=== PATIENT | female | born 1935 | race Caucasian/White ===

== ENCOUNTER 2018-12-18 15:48 | Outpatient (REF) | payer MEDICARE, SELFPAY ==
[2018-12-18 19:59] LABS: ALT 20 U/L (12-78); AST 16 U/L (15-37); Albumin 3.4 g/dL (3.4-5.0); Alkaline Phosphatase 118 U/L (46-116); BUN 18 mg/dL (7-18); Bilirubin, Total 0.3 mg/dL (0.2-1.0); CREATININE 0.72 mg/dL (0.55-1.02); Calculated LDL 169; Chloride 107 mmol/L (98-107); Cholesterol 245 mg/dL (50-200); Glucose 124 mg/dL (70-100); HDL Cholesterol 49 mg/dL (40-60); Potassium 4.5 mmol/L (3.5-5.1); Sodium 145 mmol/L (136-145); Total Protein 6.9 g/dL (6.4-8.2); Triglyceride 136 mg/dL (30-150)
== END 2018-12-18 16:08 ==
LOC: NCHCN 15:48
PROVIDERS: PCP Family Medicine; Visit Provider Nurse Practitioner
DX: E78.5 Hyperlipidemia, unspecified (principal); Z86.73 Personal history of transient ischemic attack (TIA), and cerebral infarction without residual deficits
CPT/HCPCS: 80053; 80061; 83721

== ENCOUNTER 2019-01-17 12:32 | Emergency (ER) | payer MEDICARE, SELFPAY ==
[2019-01-17 12:36] VITALS: BP 145/65; PULSE 102; RESP 16; TEMP 37; O2SAT 97
--- NOTE | 2019-01-17 12:44 | W.ED.GENAD ---
Discharge Plan Disposition Patient Disposition: HOME Condition: Improving Discharge Details Chief Complaint: DentalOral Clinical Impression: Odontalgia Primary Care Provider: Joy Law ED Provider: Jonel London Home Meds and New Rx's Prescriptions: New penicillin V potassium 500 mg tablet 500 mg PO TID 10 Days Qty: 30 RF: 0 Continued aspirin 81 MG tablet,chewable 81 mg PO BID RF: 0 epinephrine 0.3 MG/SYR auto-injector 0.3 mg IJ PRN PRN (Reason: Anaphylaxis) Qty: 1 RF: 0 Discharge Instructions Instructions: Toothache (ED) Additional Instructions: Please follow-up with dentistry for recheck. Take penicillin as prescribed. May use Tylenol if needed for aches or pains Medical Decision Making 83-year-old female presents with odontalgia intermittently over weeks time, worse with hard crusty foods. She is afebrile and her examination reveals numerous dental caries and tenderness to percussion of the left maxillary premolars. Consistent with early apical infection. She has voiced a fear regarding dentistry due to coronary disease. She has not had any chest pains or other discomfort. I reassured her that she and her best interest to follow-up with dentistry. I will place her on a course of penicillin for developing infection. She is stable for discharge HPI General Mode of arrival: ambulatory. Date/Time Provider Initiated Documentation: 01/17/19 12:32. Limitations to Documentation: no limitations. Information obtained by: patient and family. History of Present Illness 83 year old F presents to the emergency department with the chief complaint of Left upper dental pain, described as moderate, Quality is described as dull, and is localized to the mouth and left. Patient reports no radiation. Patient started experiencing this day(s) and it has been intermittent. No relieving factors improve symptom(s), No exacerbating factors reported . Patient notes no other symptoms.; denies fever/chills. Patient did receive the following treatments prior to arrival, none Related Data Home Medications Medication Instructions Recorded Confirmed aspirin 81 mg PO BID tab.chew 06/09/17 01/17/19 epinephrine 0.3 mg IJ PRN PRN #1 kit 01/21/18 penicillin V potassium 500 mg PO TID 10 Days #30 tab 01/17/19 Previous Rx's Medication Instructions Recorded epinephrine 0.3 mg IJ PRN PRN #1 kit 01/21/18 penicillin V potassium 500 mg PO TID 10 Days #30 tab 01/17/19 Allergies Allergy/AdvReac Type Severity Reaction Status Date / Time ticagrelor [From Brilinta] Allergy Mild Skin Rash Unverified 01/17/19 12:40 General Stated Complaint: DentalOral KELVIN: 4 Review of Systems Review of Systems 6 systems reviewed and otherwise negative [facility] Medical History Acute ST elevation myocardial infarction (STEMI) CAD (coronary artery disease) HTN (hypertension) PVD (peripheral vascular disease) with claudication TIA (transient ischemic attack) Surgical History Appendectomy Cholecystectomy Social History Smoking/Tobacco Use Status: Former Tobacco Use Drug use: Never Do you feel safe at home: Yes Do you feel safe in your relationship?: Yes Exam Narrative Exam Narrative: GEN: awake, alert, oriented 3. Pleasant, well groomed, interactive. HEAD: Normocephalic, atraumatic ENT: Mucous membranes moist, oropharynx with tender teeth left maxillary premolar, numerous dental caries. External ear exam unremarkable EYES: PERRL, EOMI NECK: Full ROM, no SERGE, no menigismus CHEST/RESP: Nontender, clear to auscultation bilateral, no wheeze/rhonchi/rales CARDIOVASCULAR: RRR, no murmur, rub dwaine. 2+ Rad pulse bilateral EXT: Full ROM, no edema, no rash Neuro: Grossly normal neurologic exam, conversant, interactive. Psych: Speech fluent, thoughts congruent, affect normal Course Vital Signs Temperature 37.0 C 01/17/19 12:36 Pulse 102 H 01/17/19 12:36 Respiratory Rate 16 01/17/19 12:36 Blood Pressure 145/65 H 01/17/19 12:36 Pulse Oximetry 97 01/17/19 12:36 Temperature 37.0 C 01/17/19 12:36 Temperature Source Temporal Artery Scan 01/17/19 12:36 Pulse 102 H 01/17/19 12:36 Respiratory Rate 16 01/17/19 12:36 Respiratory Effort Non-Labored 01/17/19 12:38 Blood Pressure 145/65 H 01/17/19 12:36 Blood Pressure Position Sitting 01/17/19 12:36 Pulse Oximetry 97 01/17/19 12:36 Oxygen Delivery Method Room Air 01/17/19 12:36 Oxygen Flow Rate 0 01/17/19 12:36 Pain Level 6 01/17/19 12:39
--- NOTE | 2019-01-17 12:47 | ED.GENADUL_ITS ---
Discharge Plan Disposition Patient Disposition: HOME Condition: Improving Discharge Details Chief Complaint: DentalOral Clinical Impression: Odontalgia Primary Care Provider: Joy Law ED Provider: Jonel London Home Meds and New Rx's Prescriptions: New penicillin V potassium 500 mg tablet 500 mg PO TID 10 Days Qty: 30 RF: 0 Continued aspirin 81 MG tablet,chewable 81 mg PO BID RF: 0 epinephrine 0.3 MG/SYR auto-injector 0.3 mg IJ PRN PRN (Reason: Anaphylaxis) Qty: 1 RF: 0 Discharge Instructions Instructions: Toothache (ED) Additional Instructions: Please follow-up with dentistry for recheck. Take penicillin as prescribed. May use Tylenol if needed for aches or pains Medical Decision Making 83-year-old female presents with odontalgia intermittently over weeks time, worse with hard crusty foods. She is afebrile and her examination reveals numerous dental caries and tenderness to percussion of the left maxillary premolars. Consistent with early apical infection. She has voiced a fear regarding dentistry due to coronary disease. She has not had any chest pains or other discomfort. I reassured her that she and her best interest to follow-up with dentistry. I will place her on a course of penicillin for developing infection. She is stable for discharge HPI General Mode of arrival: ambulatory . Date/Time Provider Initiated Documentation: 01/17/19 12:32 . Limitations to Documentation: no limitations . Information obtained by: patient and family . History of Present Illness 83 year old F presents to the emergency department with the chief complaint of Left upper dental pain, described as moderate, Quality is described as dull, and is localized to the mouth and left. Patient reports no radiation. Patient started experiencing this day(s) and it has been intermittent. No relieving factors improve symptom(s), No exacerbating factors reported . Patient notes no other symptoms.; denies fever/chills. Patient did receive the following treatments prior to arrival, none Related Data Home Medications Medication Instructions Recorded Confirmed aspirin 81 mg PO BID tab.chew 06/09/17 01/17/19 epinephrine 0.3 mg IJ PRN PRN #1 kit 01/21/18 penicillin V potassium 500 mg PO TID 10 Days #30 tab 01/17/19 Previous Rx's Medication Instructions Recorded epinephrine 0.3 mg IJ PRN PRN #1 kit 01/21/18 penicillin V potassium 500 mg PO TID 10 Days #30 tab 01/17/19 Allergies Allergy/AdvReac Type Severity Reaction Status Date / Time ticagrelor [From Brilinta] Allergy Mild Skin Rash Unverified 01/17/19 12:40 General Stated Complaint: DentalOral KELVIN: 4 Review of Systems Review of Systems 6 systems reviewed and otherwise negative [facility] Medical History Acute ST elevation myocardial infarction (STEMI) CAD (coronary artery disease) HTN (hypertension) PVD (peripheral vascular disease) with claudication TIA (transient ischemic attack) Surgical History Appendectomy Cholecystectomy Social History Smoking/Tobacco Use Status: Former Tobacco Use Drug use: Never Do you feel safe at home: Yes Do you feel safe in your relationship?: Yes Exam Narrative Exam Narrative: GEN: awake, alert, oriented 3. Pleasant, well groomed, interactive. HEAD: Normocephalic, atraumatic ENT: Mucous membranes moist, oropharynx with tender teeth left maxillary premolar, numerous dental caries. External ear exam unremarkable EYES: PERRL, EOMI NECK: Full ROM, no SERGE, no menigismus CHEST/RESP: Nontender, clear to auscultation bilateral, no wheeze/rhonchi/rales CARDIOVASCULAR: RRR, no murmur, rub dwaine. 2+ Rad pulse bilateral EXT: Full ROM, no edema, no rash Neuro: Grossly normal neurologic exam, conversant, interactive. Psych: Speech fluent, thoughts congruent, affect normal Course Vital Signs Temperature 37.0 C 01/17/19 12:36 Pulse 102 H 01/17/19 12:36 Respiratory Rate 16 01/17/19 12:36 Blood Pressure 145/65 H 01/17/19 12:36 Pulse Oximetry 97 01/17/19 12:36 Temperature 37.0 C 01/17/19 12:36 Temperature Source Temporal Artery Scan 01/17/19 12:36 Pulse 102 H 01/17/19 12:36 Respiratory Rate 16 01/17/19 12:36 Respiratory Effort Non-Labored 01/17/19 12:38 Blood Pressure 145/65 H 01/17/19 12:36 Blood Pressure Position Sitting 01/17/19 12:36 Pulse Oximetry 97 01/17/19 12:36 Oxygen Delivery Method Room Air 01/17/19 12:36 Oxygen Flow Rate 0 01/17/19 12:36 Pain Level 6 01/17/19 12:39
[2019-01-17 15:30] VITALS: BP 145/65; PULSE 102; RESP 16; TEMP 37; O2SAT 97
== END 2019-01-17 12:53 | disposition home or self-care (01) ==
LOC: ER 12:56
PROVIDERS: Emergency Provider Emergency Medicine; PCP Nurse Practitioner
DX: K04.7 Periapical abscess without sinus (principal)
CPT/HCPCS: 99283

== ENCOUNTER 2022-02-13 16:47 | Emergency (ER) | payer MEDICARE, MEDICAID, SELFPAY ==
[2022-02-13] VITALS (14 sets, daily range): BP systolic 107–198; BP diastolic 63–126; PULSE 62–76; RESP 9–21; TEMP 36–36.6; O2SAT 95–99
--- NOTE | 2022-02-13 17:15 | DI.CT_ITS ---
Exam(s) CT BRAIN NECK CTA EXAM: CT BRAIN NECK CTA CLINICAL HISTORY: dizziness. TECHNIQUE: Imaging Protocol: Axial CT angiography was performed with multi-slice acquisition and mu lti-planar and 3D reconstructions. CONTRAST MATERIAL: Intravenous: Omnipaque 350 Contrast volume:structured data in ml COMPARISON: CT CH/UPPER ABD WITH CONTRAST from 06/14/2017 FINDINGS: CT Head W/O and W contrast: Ventricles and Extra axial spaces: Normal in size and morphology for the patient's age. Hemorrhage: None. Cerebral parenchyma: Mild atrophy consistent with the patient's age. 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 No it infarct or mass. Midline shift: None. Brainstem/Cerebellum: Normal. Calvarium: Normal. Visualized Paranasal sinuses/Mastoids: Clear. Soft Tissues: Unremarkable. Enhancement: Normal. CTA Brain W: Internal Carotid Arteries: Petrous: Normal. Cavernous: Normal. Cerebral: Normal. Middle Cerebral Arteries: Right: No aneurysm, occlusion or significant stenosis. Left: No aneurysm, occlusion or significant stenosis. Anterior Cerebral Arteries: Right: No aneurysm, occlusion or significant stenosis. Left: No aneurysm, occlusion or significant stenosis. Posterior cerebral Arteries: Right: No aneurysm, occlusion or significant stenosis. Left: No aneurysm, occlusion or significant stenosis. Vertebral Arteries: Right: No aneurysm, occlusion or significant stenosis. Left: No aneurysm, occlusion or significant stenosis. Basilar Artery: No aneurysm, occlusion or significant stenosis. CTA Neck W: Common Carotid: Right: No aneurysm, occlusion or significant stenosis. Left: No aneurysm, occlusion or significant stenosis. External Carotid: Right: No aneurysm, occlusion or significant stenosis. Left: No aneurysm, occlusion or significant stenosis. Internal Carotid: Right: Mild plaque proximally no aneurysm,. Minimal stenosis. Left: Moderate plaque proximally. No aneurysm,. Mild stenosis. Vertebral Artery: Right: No aneurysm, occlusion or significant stenosis. No dissection Left: No aneurysm, occlusion or significant stenosis. No dissection Lung Apices: Normal. Bones: Degenerative changes. Soft Tissues: Normal. IMPRESSION: 1. Normal CTA examination of the [place]. 2. 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 3. Mild plaque in the proximal internal carotid arteriesleft greater than right. No significant sten osis of greater than 50 percent... RADIATION DOSE DELIVERED: 1,672.15mGy.cm Total DLP DATA REPOSITORY: All CT scans at this facility are submitted to the National Radiology Data Registry (NRDR) Dose Index Registry (DIR) with the [employer] ([employer]). RADIATION OPTIMIZATION: All CT scans at this facility use at least one of these dose optimization te chniques: automated exposure control; mA and/or kV adjustment per patient size (includes targeted exa ms where dose is matched to clinical indication); or iterative reconstruction.
--- NOTE | 2022-02-13 17:15 | RT.EKG_ITS ---
APPROVED REPORT Exam: Resting ECG Reason for Exam: dizzy Patient Location: E HR:58 bpm ECG Measurements Heart Rate 58 AXIS NE 189 P 24 QRSd 101 QRS 53 QT 432 T 30 QTc 426 Conclusion Sinus bradycardia...rate< 60
[2022-02-13 17:53] LABS: Abs Immature Grans 0.04 10^3/uL (0.0-0.06); Absolute Basophil Count 0.06 10^3/uL (0.0-0.2); Absolute Eosinophil Count 0.27 10^3/uL (0.0-0.7); Absolute Lymphocyte Count 2.66 10^3/uL (1.2-3.4); Absolute Monocyte Count 0.67 10^3/uL (0.1-0.8); Basophils % 0.7; Eosinophils % 3.3; HGB 14.2 g/dL (11.2-15.7); Immature Grans % 0.5; Lymphocytes % 32.8; MCH 29.5 pg (27.0-33.0); MCV 89 fL (80-95); MPV 10.4 fL (8.0-11.0); Monocytes % 8.3; Neutrophils % 54.4; Platelet Count 472 10^3/uL (130-400); RBC 4.81 10^6/uL (3.93-5.22); RDW 13.1 % (11.7-14.6); RDW-SD 42.6 fL
[2022-02-13] MEDS: diphenhydrAMINE 50 MG/ML VIAL 12.5 MG IVP (18:04)
[2022-02-13] MEDS: Lactated Ringers 1,000 ML 500 ML IV (18:04)
[2022-02-13] MEDS: methylPREDNISolone SUCC 125 MG VIAL IVP (18:05)
[2022-02-13 18:14] LABS: ALT 25 U/L (14-59); AST 20 U/L (15-37); Albumin 3.6 g/dL (3.4-5.0); Alkaline Phosphatase 101 U/L (46-116); Anion Gap 11.1 mmol/L (3-11); BUN 11 mg/dL (7-18); Bilirubin, Total 0.6 mg/dL (0.2-1.0); CO2 24.9 mmol/L (21.0-32.0); CREATININE 0.8 mg/dL (0.55-1.02); Chloride 107 mmol/L (98-107); Glucose 108 mg/dL (74-106); Potassium 3.5 mmol/L (3.5-5.1); Sodium 143 mmol/L (136-145); Total Protein 7.5 g/dL (6.4-8.2)
[2022-02-13 18:15] LABS: Troponin I < 50 ng/L (<or=60)
[2022-02-13] MEDS: Omnipaque 350 MG/ML 100 ML BTL 85 ML IJ (18:41)
[2022-02-13] MEDS: Normal Saline Flush 10 ML SYR IVP (18:41)
--- NOTE | 2022-02-13 19:24 | DI.VRAD_ITS ---
PROCEDURE INFORMATION: Exam: CTA Head With Contrast, Arteriography Exam date and time: 02/13/2022 6:34 PM Age: 86 years old Clinical indication: Dizziness and giddiness; Patient HX: HX of TIA TECHNIQUE: Imaging protocol: Computed tomographic angiography of the head with contrast. Exam focused on the arteries. 3D rendering (Not supervised by radiologist): MIP and/or 3D reconstructed images were created by the technologist. Contrast material: OMNIPAQUE 350; Contrast volume: 85 ml; Contrast route: INTRAVENOUS (IV); COMPARISON: CT HEAD WITHOUT STROKE PROTOCOL 11/03/2015 11:26 AM FINDINGS: ANTERIOR CIRCULATION: Right internal carotid artery: Unremarkable. Intracranial segment is patent with no significant stenosis. No aneurysm. Right middle cerebral artery: Unremarkable. No occlusion or significant stenosis. No aneurysm. Right anterior cerebral artery: Unremarkable. No occlusion or significant stenosis. No aneurysm. Left internal carotid artery: Unremarkable. Intracranial segment is patent with no significant stenosis. No aneurysm. Left middle cerebral artery: Unremarkable. No occlusion or significant stenosis. No aneurysm. Left anterior cerebral artery: Unremarkable. No occlusion or significant stenosis. No aneurysm. POSTERIOR CIRCULATION: Right vertebral artery: Unremarkable. No occlusion or significant stenosis. No aneurysm. Left vertebral artery: Unremarkable. No occlusion or significant stenosis. No aneurysm. Basilar artery: Unremarkable. No occlusion or significant stenosis. No aneurysm. Right posterior cerebral artery: Unremarkable. No occlusion or significant stenosis. No aneurysm. Left posterior cerebral artery: Unremarkable. No occlusion or significant stenosis. No aneurysm. Brain: Diffuse cerebral atrophy is evident with chronic superimposed encephalomalacic foci consistent with chronic ischemic insults also seen involving the left parietal and occipital lobes. No evidence of acute transcortical infarction or recent intracranial hemorrhage detected. Cerebral ventricles: Ventricular and cisternal spaces are normal in size and configuration and there is no midline shift or hydrocephalus. Bones/joints: Unremarkable. No acute fracture. Soft tissues: Unremarkable. IMPRESSION: No large vessel stenosis or occlusion detected involving the major branches of the anterior or posterior intracranial circulation. PROCEDURE INFORMATION: Exam: CTA Neck With Contrast Exam date and time: 02/13/2022 6:34 PM Age: 86 years old Clinical indication: Dizziness and giddiness; Patient HX: HX of TIA TECHNIQUE: Imaging protocol: Computed tomographic angiography of the neck with contrast. 3D rendering (Not supervised by radiologist): MIP and/or 3D reconstructed images were created by the technologist. Contrast material: OMNIPAQUE 350; Contrast volume: 85 ml; Contrast route: INTRAVENOUS (IV); COMPARISON: CT CH/UPPER ABD WITH CONTRAST 06/14/2017 9:24 AM FINDINGS: Right common carotid artery: No stenosis. No dissection or occlusion. Right internal carotid artery: No stenosis of the extracranial segment. No dissection or occlusion. Right external carotid artery: No occlusion or stenosis of the origin. Left common carotid artery: No stenosis. No dissection or occlusion. Left internal carotid artery: No stenosis of the extracranial segment. No dissection or occlusion. Left external carotid artery: No occlusion or stenosis of the origin. Right vertebral artery: No stenosis. No dissection or occlusion. Left vertebral artery: No stenosis. No dissection or occlusion. Soft tissues: Normal. No significant soft tissue swelling. Bones/joints: No acute fracture. IMPRESSION: No evidence of 50% or greater stenosis involving the cervical segments of the right or left internal carotid arteries by NASCET criteria. REFERENCES: NASCET CRITERIA. The degree of internal carotid artery stenosis is based on NASCET criteria. Normal is no stenosis. Mild is less than 50% stenosis. Moderate is 50-69% stenosis. Severe is 70% to 99% stenosis. Total occlusion is no detectable patent lumen. Dictated and Authenticated by: Chaparro Mirza MD. Ordering:JUSTYNA Shipman MD
[2022-02-13 19:39] LABS: Bilirubin Negative (Negative); Blood Negative (Negative); Clarity Clear (Clear); Glucose Negative (Negative); Ketones Negative (Negative); Leukocyte Esterase Negative (Negative); Nitrite Negative (Negative); Specific Gravity 1.015 (1.005-1.025); Urobilinogen 0.2 EU/dL (Up TO 0.2); pH 7.5 (5-8)
--- NOTE | 2022-02-13 19:41 | ED.GENADUL_ITS ---
Discharge Plan Disposition Patient Disposition: HOME Condition: Stable Discharge Details Clinical Impression: Rash, Dizziness Primary Care Provider: Joy Law ED Provider: Ramonita Lynn Home Meds and New Rx's Prescriptions: New prednisone 20 mg tablet 40 mg PO DAILY 3 Days Qty: 6 0RF Continued aspirin 81 MG tablet,chewable 81 mg PO BID epinephrine 0.3 MG/SYR auto-injector 0.3 mg IJ PRN PRN (Reason: Anaphylaxis) Qty: 1 0RF Discharge Instructions Instructions: Acute Rash (ED), Dizziness (ED) Additional Instructions: Take prednisone as prescribed Take Benadryl, 25 mg every 6 hours as needed for rash and itching Stay hydrated, drink regular fluids, at least eight 8 ounce glasses of water daily Referrals: Joy Law [Primary Care Provider] - Discharge Data Discharge Date/Time-TO BE ENTERED AT DEPARTURE: 02/13/22 20:08 Medical Decision Making CTA head and neck did not show evidence of acute abnormality, labs baseline for patient Mildly hypertensive, marked improvement in symptoms after Benadryl and fluids, ambulatory with steady gait Placed on prednisone for home Will take Benadryl as needed No evidence of anaphylaxis 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 Lab Data Lab results reviewed: Yes I reviewed the patient's lab results. ECG Data Prior ECG tracings: available for review HPI General Date/Time Provider Initiated Documentation: 02/13/22 17:14 . HPI Narrative: This 86-year-old female presents for report of dizziness that started around 3 AM. Patient states she was bitten by a bug last night when she was walking on her left cheek and neck. She has had swelling. She denies any difficulty swallowing, chest pain, shortness of breath. She denies any weakness or dizziness. She denies any vision change or strength or sensation change. She denies any difficulty with walking or speech. She is not taken any nyvm-wwx-latrous medications to help with itching and swelling per patient. Related Data Home Medications Medication Instructions Recorded Confirmed aspirin 81 mg chewable tablet 81 mg PO BID 06/09/17 02/13/22 epinephrine 0.3 mg/0.3 mL 0.3 mg (0.3 mL) IJ PRN PRN 01/21/18 injection, auto-injector Anaphylaxis ##1 prednisone 20 mg tablet 40 mg PO DAILY 3 days #6 tabs 02/13/22 Previous Rx's Medication Instructions Recorded epinephrine 0.3 mg/0.3 mL 0.3 mg (0.3 mL) IJ PRN PRN 01/21/18 injection, auto-injector Anaphylaxis ##1 prednisone 20 mg tablet 40 mg PO DAILY 3 days #6 tabs 02/13/22 Allergies Allergy/AdvReac Type Severity Reaction Status Date / Time ticagrelor [From Brilinta] Allergy Mild Skin Rash Unverified 02/13/22 17:08 General Stated Complaint: Allergic KELVIN: 3 Review of Systems All systems reviewed & are unremarkable except as noted in HPI and below PFSH All Active Problems (Updated 02/13/22 @ 19:44 by CATALINA Aviles) Rash (Acute) Dizziness (Acute) Medical History (Updated 02/13/22 @ 19:44 by CATALINA Aviles) Acute ST elevation myocardial infarction (STEMI) CAD (coronary artery disease) HTN (hypertension) PVD (peripheral vascular disease) with claudication TIA (transient ischemic attack) Surgical History Appendectomy Cholecystectomy Social History Smoking/Tobacco Use Status: Former Tobacco Use Smoking risk assessment performed?: Yes Alcohol Intake: never Drug use: Never Substance use type: does not use Do you feel safe at home: Yes Do you feel safe in your relationship?: Yes Exam Const General: cooperative, comfortable and no acute distress Orientation: alert and oriented x3 [facility] Head images: 1. swelling and redness Face images: 1. Throat: uvula midline Other: No edema noted Eyes Pupils: PERRL EOM: EOM intact bilaterally Resp Effort & Inspection: normal respiratory effort Auscultation: clear to auscultation bilaterally Cardio Rate: regular rate Rhythm: regular rhythm Skin General skin exam: no rashes or lesions noted Neuro General: patient alert and patient oriented x3 Cognition: normal cognition Speech: speech normal Gait: normal gait Motor: strength 5/5 throughout Other: Sensation intact distally, negative [id number]-wwpgug, negative heel mansfield, negative pronator drift Extrem Other: neurovascularly intact Course Vital Signs Vital signs: Vital Signs Temperature 36 C L 02/13/22 17:02 Pulse 72 02/13/22 17:02 Respiratory Rate 18 02/13/22 17:02 Blood Pressure 171/98 H 02/13/22 17:02 Pulse Oximetry 99 02/13/22 17:02 Temperature 36 C L 02/13/22 17:02 Temperature Source Temporal Artery Scan 02/13/22 17:02 Pulse 70 02/13/22 18:16 Pulse 70 02/13/22 18:48 Respiratory Rate 9 L 02/13/22 18:48 Respiratory Effort 02/13/22 18:44 Respiratory Pattern Normal 02/13/22 18:44 Blood Pressure 198/88 H 02/13/22 18:16 Blood Pressure Mean 113 02/13/22 18:16 Blood Pressure Position Sitting 02/13/22 17:02 Pulse Oximetry 98 02/13/22 18:48 Oxygen Delivery Method Room Air 02/13/22 17:02 Oxygen Flow Rate 0 02/13/22 17:02 Pain Level 0 02/13/22 17:02 Lab/Test Results Lab/Test Results: Laboratory Tests Range/Units 02/13/22 02/13/22 02/13/22 17:40 17:40 17:40 WBC (4.4-10.8) 10^3/uL 8.10 RBC (3.93-5.22) 10^6/uL 4.81 Hgb (11.2-15.7) g/dL 14.2 Hct (36.0-46.0) % 43.0 MCV (80-95) fL 89 MCH (27.0-33.0) pg 29.5 MCHC (32.0-36.0) % 33.0 RDW (11.7-14.6) % 13.1 Plt Count (130-400) 10^3/uL 472 H MPV (8.0-11.0) fL 10.4 Immature Gran % 0.5 Neutrophils % 54.4 Lymphocytes % 32.8 Monocytes % 8.3 Eosinophils % 3.3 Basophils % 0.7 Nucleated RBC % (0.0-0.3) % 0.0 Absolute Neutrophils (1.2-6.7) 10^3/uL 4.40 Absolute Lymphocytes (1.2-3.4) 10^3/uL 2.66 Absolute Monocytes (0.1-0.8) 10^3/uL 0.67 Absolute Eosinophils (0.0-0.7) 10^3/uL 0.27 Absolute Basophils (0.0-0.2) 10^3/uL 0.06 Sodium (136-145) mmol/L 143 Potassium (3.5-5.1) mmol/L 3.5 Chloride (98-107) mmol/L 107 Carbon Dioxide (21.0-32.0) mmol/L 24.9 Anion Gap (3-11) mmol/L 11.1 H BUN (7-18) mg/dL 11 Creatinine (0.55-1.02) mg/dL 0.8 Estimated GFR/1.73 m2 (mL/min/1.73m2) >= 60.00 Glucose (74-106) mg/dL 108 H Calcium (8.5-10.1) mg/dL 10.0 Magnesium (1.8-2.4) mg/dL 2.0 Total Bilirubin (0.2-1.0) mg/dL 0.6 AST (15-37) U/L 20 ALT (14-59) U/L 25 Alkaline Phosphatase (46-116) U/L 101 Troponin I (<or=60) ng/L < 50 Total Protein (6.4-8.2) g/dL 7.5 Albumin (3.4-5.0) g/dL 3.6 Urine Color (Yellow) Urine Clarity (Clear) Urine pH (5-8) Ur Specific [place] (1.005-1.025) Urine Protein (Negative) mg/dL Urine Ketones (Negative) mg/dL Urine Blood (Negative) Urine Nitrite (Negative) Urine Bilirubin (Negative) Urine Urobilinogen (Up TO 0.2) EU/dL Ur Leukocyte Esterase (Negative) Urine Glucose (Negative) mg/dL Range/Units 02/13/22 19:35 WBC (4.4-10.8) 10^3/uL RBC (3.93-5.22) 10^6/uL Hgb (11.2-15.7) g/dL Hct (36.0-46.0) % MCV (80-95) fL MCH (27.0-33.0) pg MCHC (32.0-36.0) % RDW (11.7-14.6) % Plt Count (130-400) 10^3/uL MPV (8.0-11.0) fL Immature Gran % Neutrophils % Lymphocytes % Monocytes % Eosinophils % Basophils % Nucleated RBC % (0.0-0.3) % Absolute Neutrophils (1.2-6.7) 10^3/uL Absolute Lymphocytes (1.2-3.4) 10^3/uL Absolute Monocytes (0.1-0.8) 10^3/uL Absolute Eosinophils (0.0-0.7) 10^3/uL Absolute Basophils (0.0-0.2) 10^3/uL Sodium (136-145) mmol/L Potassium (3.5-5.1) mmol/L Chloride (98-107) mmol/L Carbon Dioxide (21.0-32.0) mmol/L Anion Gap (3-11) mmol/L BUN (7-18) mg/dL Creatinine (0.55-1.02) mg/dL Estimated GFR/1.73 m2 (mL/min/1.73m2) Glucose (74-106) mg/dL Calcium (8.5-10.1) mg/dL Magnesium (1.8-2.4) mg/dL Total Bilirubin (0.2-1.0) mg/dL AST (15-37) U/L ALT (14-59) U/L Alkaline Phosphatase (46-116) U/L Troponin I (<or=60) ng/L Total Protein (6.4-8.2) g/dL Albumin (3.4-5.0) g/dL Urine Color (Yellow) Yellow Urine Clarity (Clear) Clear Urine pH (5-8) 7.5 Ur Specific [place] (1.005-1.025) 1.015 Urine Protein (Negative) mg/dL Negative Urine Ketones (Negative) mg/dL Negative Urine Blood (Negative) Negative Urine Nitrite (Negative) Negative Urine Bilirubin (Negative) Negative Urine Urobilinogen (Up TO 0.2) EU/dL 0.2 Ur Leukocyte Esterase (Negative) Negative Urine Glucose (Negative) mg/dL Negative
== END 2022-02-13 20:08 | disposition home or self-care (01) ==
PROVIDERS: Emergency Provider Physician Assistant; PCP Nurse Practitioner
DX: R42 Dizziness and giddiness (principal); R21 Rash and other nonspecific skin eruption; I10 Essential (primary) hypertension; Z87.891 Personal history of nicotine dependence
CPT/HCPCS: 36415; 70496; 70498; 80053; 93005; 96361; 96374; 96375; 99285; 81003; 83735; 84484; 85025; 93010; 99284; J1200; J2930; J3490

== ENCOUNTER 2022-11-19 08:30 | Emergency (ER) | payer MEDICARE, MEDICAID, SELFPAY ==
[2022-11-19 08:35] VITALS: BP 110/70; PULSE 80; RESP 18; TEMP 36.8; O2SAT 99
--- NOTE | 2022-11-19 08:54 | ED.GENADUL_ITS ---
Discharge Plan Disposition Patient Disposition: Home Discharge Details Clinical Impression: Acute cervical myofascial strain Primary Care Provider: RIK AUGUSTE ED Provider: Ceasar Gavin Home Meds and New Rx's Prescriptions: Continued aspirin 81 MG tablet,chewable 81 mg PO BID epinephrine 0.3 MG/SYR auto-injector 0.3 mg IJ PRN PRN (Reason: Anaphylaxis) Qty: 1 0RF Discharge Instructions Instructions: Cervical Strain (ED) Additional Instructions: Please continue to use the provided gel 4 times daily as needed for pain. Please rub appropriate amount on area of discomfort. You may also use [id number] acetaminophen as needed for further discomfort. Please follow- up with physical therapy and call number on paperwork for arrangement of physical therapy evaluation to improve your discomfort and range of motion of your neck. Also follow-up with your primary care provider for reassessment and to ensure you are improving. Stand Alone Forms: Physical Therapy Referral Referrals: RIK AUGUSTE, BUSINESS STRATEGY MANAGER [Primary Care Provider] - 1 week Medical Decision Making Patient presenting to the emergency department via EMS for chief complaint of neck pain. Patient states that 2 weeks ago she was gardening and afterwards she started having significant neck pain. Since then she has had continuing neck pain that has not improved in spite of time. Patient states significant reactions to even zkek-xsv-joxouzh medications and has only been taking her 81 mg aspirin which is not providing her any relief. Patient denies any injury or trauma, radiating pain, numbness tingling, headaches, or neurological symptoms. Physical exam shows slight and subtle midline tenderness to approximately C3-4 and muscular tenderness to the right side that is diffuse. Patient does have difficulty with range of motion that I feel is more secondary to pain than limitation. Patient very hesitant to taking any oral pain medication so we will give patient Voltaren gel and given duration of symptoms along with patient's age we will perform radiological imaging. Reviewed radiologist interpretation that shows mild degeneration C6-C7 but no acute abnormality noted. We will plan on sending patient home with Voltaren gel to use 4 times daily as needed for pain and recommended use of acetaminophen at night. Patient otherwise referred to primary care provider and physical therapy for reassessment and further interventions. After discussion of diagnosis and plan of care patient has no further needs, questions, or concerns and states clear understanding to return to the emergency department for any worsening symptoms. This documentation was generated using [employer] system, please disregard any oddities of phrase or misspellings. Imaging Data Radiologic Study: Imaging: CT Scan Radiologist's impression: Exam(s) CT CERVICAL SPINE WO EXAM: CT CERVICAL SPINE WO CLINICAL HISTORY: neck pain (c4?). TECHNIQUE: Imaging Protocol: Axial computed tomography images with coronal and sagittal reformatted images were created and reviewed CONTRAST MATERIAL: Noncontrast COMPARISON: 13 February 2022 FINDINGS: Bones: No fracture or dislocations are seen. The alignment of the cervical spine is normal including the cervicovertebral junction and cervicothoracic junction. Soft Tissues: The soft tissues of the neck are unremarkable. No large disk herniations are identified. Mild degenerative disc changes at C6-7. No significant neural foraminal narrowing or central canal stenosis. The visualized portions of the lung apices shows stable areas of scarring. No pneumothorax is seen. IMPRESSION: Mild degenerative changes at C6-7. Acute abnormality identified. HPI General Mode of arrival: EMS . Date/Time Provider Initiated Documentation: 11/19/22 08:34 . Limitations to Documentation: no limitations . Information obtained by: patient and RN notes reviewed . History of Present Illness 86 year old F presents to the emergency department with the chief complaint of neck pain , described as moderate, with intensity rated at 8. Quality is described as aching and sharp, and is localized to the neck. Patient reports no radiation. Patient started experiencing this week(s) (2) and it has been constant. No relieving factors improve symptom(s), Movement worsens symptoms . Patient notes no other symptoms.. Patient did receive the following treatments prior to arrival, Aspirin Related Data Home Medications Medication Instructions Recorded Confirmed aspirin 81 mg chewable tablet 81 mg PO BID 06/09/17 11/19/22 epinephrine 0.3 mg/0.3 mL 0.3 mg (0.3 mL) IJ PRN PRN 01/21/18 11/19/22 injection, auto-injector Anaphylaxis ##1 Previous Rx's Medication Instructions Recorded epinephrine 0.3 mg/0.3 mL 0.3 mg (0.3 mL) IJ PRN PRN 01/21/18 injection, auto-injector Anaphylaxis ##1 Allergies Allergy/AdvReac Type Severity Reaction Status Date / Time ticagrelor [From Brilinta] Allergy Mild Skin Rash Unverified 02/13/22 17:08 General Stated Complaint: Nk/Back Pain KELVIN: 4 Review of Systems Constitutional Constitutional: Denies chills, Denies fever(s) and Denies headache(s) Eyes Eyes: Denies change in vision ENT Ears, Nose, Mouth, and Throat: Denies headache(s) and Reports neck pain Cardiovascular Cardiovascular: Denies chest pain and Denies dyspnea Respiratory Respiratory: Denies dyspnea Musculoskeletal Musculoskeletal: Denies muscle weakness, Reports neck pain, Denies numbness, Reports stiffness and Denies tingling Integumentary/Breasts Skin/Breast: Denies rash Neurologic Neurologic: Denies headache(s), Denies numbness and Denies tingling PFSH All Active Problems (Updated 11/19/22 @ 10:08 by Ceasar Gavin NP) Acute cervical myofascial strain (Acute) Medical History Acute ill-defined cerebrovascular disease Acute ST elevation myocardial infarction (STEMI) CAD (coronary artery disease) Cataract HTN (hypertension) Hyperlipidemia PVD (peripheral vascular disease) with claudication TIA (transient ischemic attack) Surgical History Appendectomy Cholecystectomy Social History Smoking/Tobacco Use Status: Former Tobacco Use Smoking risk assessment performed?: Yes Alcohol Intake: never Drug use: Never Substance use type: does not use Do you feel safe at home: Yes Do you feel safe in your relationship?: Yes Exam Const General: cooperative, no acute distress and not ill appearing Orientation: alert, awake and oriented x3 HENMT Mouth: moist mucous membranes Resp Effort & Inspection: normal respiratory effort, able to speak in complete sentences and no respiratory distress Cardio Rate: regular rate Rhythm: regular rhythm Heart Sounds: S1 normal and S2 normal Back/Spine/Pelvis Cervical Spine: normal cervical lordosis, No loss of normal cervical lordosis, cervical muscular tenderness, pain with cervical ROM, cervical spasm, cervical spinal tenderness and No step off deformity Thoracic/Lumbar Spine: thoracic and lumbar spine normal to inspection Skin General skin exam: no rashes or lesions noted Neuro General: patient alert, patient awake, patient oriented x3, moves all extremities and no focal motor deficits Sensory Exam: no sensory deficits noted Course Vital Signs Vital signs: Vital Signs Temperature 36.8 C 11/19/22 08:35 Pulse 80 11/19/22 08:35 Respiratory Rate 18 11/19/22 08:35 Blood Pressure 110/70 11/19/22 08:35 Pulse Oximetry 99 11/19/22 08:35 Temperature 36.8 C 11/19/22 08:35 Temperature Source Temporal Artery Scan 11/19/22 08:35 Pulse 80 11/19/22 08:35 Respiratory Rate 18 11/19/22 08:35 Respiratory Effort Normal, Non-Labored 11/19/22 08:39 Blood Pressure 110/70 11/19/22 08:35 Blood Pressure Position Supine 11/19/22 08:35 Pulse Oximetry 99 11/19/22 08:35 Oxygen Delivery Method Room Air 11/19/22 08:35 Oxygen Flow Rate 0 11/19/22 08:35 Pain Level 8 11/19/22 08:35
[2022-11-19] MEDS: Diclofenac 1% Gel 100 GM TUBE TP (08:56)
--- NOTE | 2022-11-19 09:20 | DI.CT_ITS ---
Exam(s) CT CERVICAL SPINE WO EXAM: CT CERVICAL SPINE WO CLINICAL HISTORY: neck pain (c4?). TECHNIQUE: Imaging Protocol: Axial computed tomography images with coronal and sagittal reformatted images were created and reviewed CONTRAST MATERIAL: Noncontrast COMPARISON: 13 February 2022 FINDINGS: Bones: No fracture or dislocations are seen. The alignment of the cervical spine is normal including the cervicovertebral junction and cervicothoracic junction. Soft Tissues: The soft tissues of the neck are unremarkable. No large disk herniations are identified . Mild degenerative disc changes at C6-7. No significant neural foraminal narrowing or central vivi l stenosis. The visualized portions of the lung apices shows stable areas of scarring. No pneumotho rax is seen. IMPRESSION: Mild degenerative changes at C6-7. Acute abnormality identified. RADIATION DOSE DELIVERED: 294.87mGy.cm Total DLP DATA REPOSITORY: All CT scans at this facility are submitted to the National Radiology Data Registry (NRDR) Dose Index Registry (DIR) with the [employer] (A[employer]). RADIATION OPTIMIZATION: All CT scans at this facility use at least one of these dose optimization te chniques: automated exposure control; mA and/or kV adjustment per patient size (includes targeted exa ms where dose is matched to clinical indication); or iterative reconstruction.
[2022-11-19 10:23] VITALS: PULSE 68; RESP 18; O2SAT 98
== END 2022-11-19 10:45 | disposition home or self-care (01) ==
LOC: ER 10:45
PROVIDERS: Emergency Provider Nurse Practitioner Family; PCP Nurse Practitioner Family
DX: S16.1XXA Strain of muscle, fascia and tendon at neck level, initial encounter (principal); X58.XXXA Exposure to other specified factors, initial encounter
CPT/HCPCS: 99284; 72125; 99283